=== PATIENT | female | born 1985 | race Caucasian/White ===

== ENCOUNTER → 2018-01-19 | Outpatient (CLI) | payer OTHER ==
[~2018-01-19] MED LIST: Flagyl500 MG PO; HYDR1TAB94 PO; LITH300C PO; METR500 PO; MULVITMINE PO; SERT100 PO
== END | disposition home or self-care (01) ==
LOC: LAB SHORT 12:46 → LAB EV 12:46
DX: R82.90 Unspecified abnormal findings in urine (principal)
CPT/HCPCS: 87086

== ENCOUNTER → 2018-01-31 | Outpatient (CLI) | payer OTHER | LOC: LAB EV 12:17 → LAB SHORT 12:17 | DX: N39.0 Urinary tract infection, site not specified (principal) | CPT/HCPCS: 87077; 87086; 87186 ==

== ENCOUNTER → 2018-02-18 | Outpatient (CLI) | payer OTHER | END | disposition home or self-care (01) | LOC: LAB SHORT 15:18 → LAB EV 15:18 | DX: R35.0 Frequency of micturition (principal) | CPT/HCPCS: 87086 ==

== ENCOUNTER → 2018-02-20 | Outpatient (CLI) | payer OTHER ==
[2018-02-21 10:41] LABS: Candida species (DNA Probe) Negative (NEGATIVE); G. vaginalis (DNA Probe) Negative (NEGATIVE); T. vaginalis (DNA Probe) Negative (NEGATIVE)
== END ==
LOC: LAB SHORT 16:19 → LAB EV 16:19
PROVIDERS: Physician Assistant Medical
DX: R35.0 Frequency of micturition (principal)
CPT/HCPCS: 87086; 87480; 87510; 87660

== ENCOUNTER → 2019-01-20 | Outpatient (CLI) | payer OTHER | END | disposition home or self-care (01) | LOC: LAB EV 15:08 → LAB SHORT 15:08 | DX: R35.0 Frequency of micturition (principal) | CPT/HCPCS: 87086 ==

== ENCOUNTER 2019-02-13 00:14 | Day surgery (SDC) | payer OTHER | END 2019-02-13 09:19 | disposition home or self-care (01) | LOC: ATC 00:14 | DX: R53.83 Other fatigue (principal); G43.909 Migraine, unspecified, not intractable, without status migrainosus | CPT/HCPCS: 36415; 80400; 82533; 96372; J0834 ==

== ENCOUNTER 2019-06-21 11:46 | Emergency (ER) | payer OTHER ==
[~2019-06-21] VITALS: Ht 180.3 cm; Wt 74.8 kg
[2019-06-21] MEDS ORDERED: NEFA50 PO (13:03)
[2019-06-21] MEDS ORDERED: Neurontin 300300 MG PO ×2 (13:54→14:24)
== END 2019-06-21 14:28 | disposition home or self-care (01) ==
LOC: ER 11:46
DX: R51 Headache (principal); F32.9 Major depressive disorder, single episode, unspecified; Z79.899 Other long term (current) drug therapy
CPT/HCPCS: 70487; 96374-59; 99283-25; J1885; Q9967

== ENCOUNTER → 2020-08-22 | Outpatient (CLI) | payer OTHER ==
[~2020-08-22] MED LIST changes: +NEFA50 PO; +Neurontin 300300 MG PO
[2020-08-24 16:10] LABS: CORONAVIRUS (COVID19) CSH-NRL Positive (Negative)
== END | disposition home or self-care (01) ==
LOC: PLD 18:57 → LAB SHORT 18:57
PROVIDERS: Physician Assistant Medical
DX: U07.1 COVID-19 (principal)
CPT/HCPCS: U0003

== ENCOUNTER 2021-03-10 18:26 | Emergency (ER) | payer OTHER ==
[~2021-03-10] VITALS: Ht 177.8 cm; Wt 72.6 kg
[2021-03-10 19:23] LABS: BASOPHILS ABSOLUTE AUTO 0.05 K/mm3 (0.00-0.23); BASOPHILS PERCENT AUTO 1 % (0-2); EOSINOPHILS ABSOLUTE AUTO 0.08 K/mm3 (0.00-0.68); EOSINOPHILS PERCENT AUTO 1 % (0-6); Hematocrit 42.2 % (33.0-51.0); IMMATURE GRAN ABSOLUTE AUTO 0.01 K/mm3 (0.00-0.10); IMMATURE GRAN PERCENT AUTO 0 % (0-1); LYMPHOCYTES ABSOLUTE AUTO 1.85 K/mm3 (0.84-5.20); LYMPHOCYTES PERCENT AUTO 32 % (21-46); MONOCYTES ABSOLUTE AUTO 0.47 K/mm3 (0.16-1.47); MONOCYTES PERCENT AUTO 8 % (4-13); Mean Corpuscular HGB 29.9 pg (26.0-34.0); Mean Corpuscular HGB Conc 33.2 g/dL (31.5-36.5); Mean Corpuscular Volume 90 fL (80-100); Mean Platelet Volume 9.3 fL (9.1-12.4); NEUTROPHILS ABSOLUTE AUTO 3.36 K/mm3 (1.96-9.15); NEUTROPHILS PERCENT AUTO 58 % (41-73); Platelet Count 267 K/mm3 (150-400); RDW Coefficient Variation 12.2 % (11.7-14.2); RDW Standard Deviation 40.1 fL (35.1-46.3); Red Blood Cell Count 4.68 M/mm3 (3.80-5.20); White Blood Cell Count 5.82 K/mm3 (4.00-11.30)
[2021-03-10 19:49] LABS: Alanine Aminotransfer (ALT/SGP 69 U/L (12-78); Albumin, Blood 4.1 g/dL (3.4-5.0); Albumin/Globulin Ratio 1.1 (0.8-1.8); Alk Phos 71 U/L (50-136); Anion Gap 5 mmol/L (6-16); Aspartate Aminotrans (AST/SGOT 39 U/L (12-37); Bilirubin, Total 0.6 mg/dL (0.1-1.0); Blood Urea Nitrogen 10 mg/dL (8-24); CO2, Blood 28 mmol/L (21-32); Chloride, Blood 108 mmol/L (98-108); Creatinine, Blood 0.77 mg/dL (0.40-1.00); Globulin, Blood 3.9 g/dL (2.2-4.0); Glomerular Filtration Rate >60 (60-); Glucose, Blood 100 mg/dL (70-99); Potassium, Blood 3.4 mmol/L (3.5-5.5); Sodium, Blood 141 mmol/L (136-145); Troponin I <0.015 ng/mL (0.000-0.040)
== END 2021-03-10 22:33 | disposition home or self-care (01) ==
LOC: ER 18:26
PROVIDERS: Physician Assistant
DX: R07.9 Chest pain, unspecified (principal); G43.909 Migraine, unspecified, not intractable, without status migrainosus; Z88.6 Allergy status to analgesic agent; Z88.5 Allergy status to narcotic agent; Z86.16 Personal history of COVID-19
CPT/HCPCS: 36415; 71045; 80053; 84484; 85025; 93005; 93010; 96374; 96375; 99285-25; J1885; J2405

== ENCOUNTER → 2022-01-30 | Outpatient (CLI) | payer OTHER | END | disposition home or self-care (01) | LOC: LAB SHORT 13:07 → LAB 13:07 | DX: N39.0 Urinary tract infection, site not specified (principal) | CPT/HCPCS: 87086 ==

== ENCOUNTER 2022-02-08 11:36 | Emergency (ER) | payer OTHER ==
[~2022-02-08] VITALS: Ht 180.3 cm; Wt 77.1 kg
[2022-02-08] MEDS ORDERED: AFRIN15 M6 (13:50)
[2022-02-08] MEDS ORDERED: ZYRTEC10 M2 PO (13:52)
[2022-02-08] MEDS ORDERED: PSEU120ER PO (13:52)
== END 2022-02-08 14:13 | disposition home or self-care (01) ==
LOC: ER 11:36
DX: H65.93 Unspecified nonsuppurative otitis media, bilateral (principal); Z88.5 Allergy status to narcotic agent; Z88.6 Allergy status to analgesic agent
CPT/HCPCS: 99282

== ENCOUNTER → 2022-07-21 | Outpatient (CLI) | payer OTHER ==
[~2022-07-21] MED LIST changes: +AFRIN15 M6; +PSEU120ER PO; +ZYRTEC10 M2 PO
== END | disposition home or self-care (01) ==
LOC: LAB 17:04 → LAB SHORT 17:04
DX: N39.0 Urinary tract infection, site not specified (principal)
CPT/HCPCS: 87086

== ENCOUNTER 2024-01-24 12:16 | Emergency (ER) | payer OTHER ==
[~2024-01-24] VITALS: Ht 172.7 cm; Wt 72.6 kg
[~2024-01-24 12:16] MED LIST changes: +CELEXA40 M9 PO; +CEPH500 PO
[2024-01-24 12:32] VITALS: BP 120/84
[2024-01-24] MEDS ORDERED: CELE200 PO (12:39)
[2024-01-24] MEDS ORDERED: Acetaminophen325 M1 PO (12:40)
== END 2024-01-24 12:40 | disposition home or self-care (01) ==
LOC: ER 12:16
DX: K08.89 Other specified disorders of teeth and supporting structures (principal); Z88.5 Allergy status to narcotic agent; Z79.899 Other long term (current) drug therapy
CPT/HCPCS: 99282

== ENCOUNTER 2024-11-23 12:07 | Emergency (ER) | payer OTHER ==
[~2024-11-23] VITALS: Ht 177.8 cm; Wt 83.5 kg
[~2024-11-23 12:07] MED LIST changes: +Acetaminophen325 M1 PO; +CELE200 PO
[2024-11-23 12:18] VITALS: BP 93/75
[2024-11-23 12:36] LABS: BASOPHILS ABSOLUTE AUTO 0.03 K/mm3 (0.00-0.23); BASOPHILS PERCENT AUTO 1 % (0-2); EOSINOPHILS ABSOLUTE AUTO 0.06 K/mm3 (0.00-0.68); EOSINOPHILS PERCENT AUTO 1 % (0-6); Hematocrit 38.7 % (33.0-51.0); Hemoglobin 12.8 g/dL (11.5-16.0); IMMATURE GRAN ABSOLUTE AUTO 0.01 K/mm3 (0.00-0.10); IMMATURE GRAN PERCENT AUTO 0 % (0-1); LYMPHOCYTES ABSOLUTE AUTO 1.79 K/mm3 (0.84-5.20); LYMPHOCYTES PERCENT AUTO 31 % (21-46); MONOCYTES ABSOLUTE AUTO 0.41 K/mm3 (0.16-1.47); MONOCYTES PERCENT AUTO 7 % (4-13); Mean Corpuscular HGB 30.4 pg (26.0-34.0); Mean Corpuscular HGB Conc 33.1 g/dL (31.5-36.5); Mean Corpuscular Volume 92 fL (80-100); Mean Platelet Volume 8.9 fL (9.1-12.4); NEUTROPHILS ABSOLUTE AUTO 3.54 K/mm3 (1.96-9.15); NEUTROPHILS PERCENT AUTO 61 % (41-73); Platelet Count 272 K/mm3 (150-400); RDW Standard Deviation 40.6 fL (35.1-46.3); Red Blood Cell Count 4.21 M/mm3 (3.80-5.20); White Blood Cell Count 5.84 K/mm3 (4.00-11.30)
[2024-11-23 13:25] LABS: Albumin, Blood 3.9 g/dL (3.4-5.0); Albumin/Globulin Ratio 1.3 (0.8-1.8); Bilirubin, Total 0.9 mg/dL (0.1-1.0); Bun/Creatinine Ratio 11.5 (12.0-20.0); Calcium, Blood 8.6 mg/dL (8.5-10.1); Creatinine, Blood 0.87 mg/dL (0.40-1.00); Potassium, Blood 3.9 mmol/L (3.5-5.5); Total Protein, Blood 6.9 g/dL (6.4-8.2)
== END 2024-11-23 15:51 | disposition home or self-care (01) ==
LOC: ER 12:07
PROVIDERS: Physician Assistant
DX: T45.2X1A Poisoning by vitamins, accidental (unintentional), initial encounter (principal); R42 Dizziness and giddiness; Z88.5 Allergy status to narcotic agent; Z79.899 Other long term (current) drug therapy
CPT/HCPCS: 80053; 85025; 99284

== ENCOUNTER → 2025-02-17 | Outpatient (CLI) | payer OTHER | LOC: LAB SHORT 11:58 → LAB 11:58 | DX: N39.0 Urinary tract infection, site not specified (principal) | CPT/HCPCS: 87086 ==

== ENCOUNTER → 2025-03-30 | Outpatient (CLI) | payer OTHER | LOC: LAB 11:57 → LAB SHORT 11:57 | DX: N39.0 Urinary tract infection, site not specified (principal) | CPT/HCPCS: 87086 ==

== ENCOUNTER → 2025-04-04 | Outpatient (CLI) | payer OTHER | LOC: LAB 15:02 → LAB SHORT 15:02 | DX: N39.0 Urinary tract infection, site not specified (principal) | CPT/HCPCS: 87086 ==